=== PATIENT | male | born 1960 | race Caucasian/White ===

== ENCOUNTER → 2025-02-26 09:57 | Outpatient (REF) | payer MEDICARE, OTHER, SELFPAY | LOC: RAD 09:57 | PROVIDERS: ATTENDING PHYSICIAN Internal Medicine Cardiovascular Disease; FAMILY PHYSICIAN Family Medicine | DX: I10 Essential (primary) hypertension (principal); Z95.5 Presence of coronary angioplasty implant and graft; I73.9 Peripheral vascular disease, unspecified; I21.3 ST elevation (STEMI) myocardial infarction of unspecified site; M79.605 Pain in left leg; I65.23 Occlusion and stenosis of bilateral carotid arteries; R42 Dizziness and giddiness; I25.10 Atherosclerotic heart disease of native coronary artery without angina pectoris; K50.90 Crohn's disease, unspecified, without complications; J44.9 Chronic obstructive pulmonary disease, unspecified; E87.1 Hypo-osmolality and hyponatremia; F10.99 Alcohol use, unspecified with unspecified alcohol-induced disorder; E78.1 Pure hyperglyceridemia; Z87.891 Personal history of nicotine dependence; R53.83 Other fatigue; C64.9 Malignant neoplasm of unspecified kidney, except renal pelvis; R06.02 Shortness of breath | CPT/HCPCS: 93880; 93925 ==

== ENCOUNTER → 2025-02-28 16:41 | Outpatient (REF) | payer MEDICARE, OTHER, SELFPAY ==
[2025-02-28 17:52] LABS: Blood Urea Nitrogen 15 mg/dl (9-20); Calcium 8.8 mg/dl (8.4-10.2); Carbon Dioxide 26 mmol/L (22-30); Chloride 99 mmol/L (98-107); Glucose 103 mg/dl (70-99); Potassium 4.6 mmol/L (3.5-5.1); Sodium 131 mmol/L (135-145); eGFR > 60.00
== END ==
LOC: REG 16:41
PROVIDERS: ATTENDING PHYSICIAN Surgery Vascular Surgery; FAMILY PHYSICIAN Family Medicine
DX: I73.9 Peripheral vascular disease, unspecified (principal)
CPT/HCPCS: 36415; 80048

== ENCOUNTER → 2025-03-06 14:11 | Outpatient (REF) | payer MEDICARE, OTHER, SELFPAY | LOC: RAD 14:11 | PROVIDERS: ATTENDING PHYSICIAN Surgery Vascular Surgery; FAMILY PHYSICIAN Family Medicine | DX: I73.9 Peripheral vascular disease, unspecified (principal) | CPT/HCPCS: 75635; Q9967 ==

== ENCOUNTER 2025-04-02 10:05 | Day surgery (SDC) | payer MEDICARE, OTHER, SELFPAY ==
[2025-04-02] VITALS (16 sets, daily range): BP systolic 88–127; BP diastolic 63–77; BMI 24.5
[2025-04-02 10:56] LABS: Hematocrit 31.8 % (39.0-52.0); Hemoglobin 10.6 g/dL (13.0-18.0); Mean Corp Hgb Conc. 33.3 g/dL (33.0-37.0); Mean Corpuscular Volume 85.7 fL (80.0-94.0); Platelet Count 313 10^3/uL (130-400); Red Cell Dist. Width 15.9 % (11.5-14.5)
[2025-04-02 11:10] LABS: INR 0.93; PT 13.0 Sec (11.4-14.6)
[2025-04-02 11:11] LABS: APTT 41.7 Sec (23.4-35.0); Blood Urea Nitrogen 8 mg/dl (9-20); Calcium 8.5 mg/dl (8.4-10.2); Carbon Dioxide 24 mmol/L (22-30); Chloride 101 mmol/L (98-107); Estimated Creatinine Clearance 107 ml/min; Glucose 72 mg/dl (70-99); Potassium 4.0 mmol/L (3.5-5.1); Sodium 131 mmol/L (135-145); eGFR > 60.00
--- NOTE | 2025-04-02 12:41 | W.SUR.PREOP ---
Pre-Operative Surgical Note
-
I have examined this patient prior to the performance of the scheduled procedure.
The patient's condition is unchanged from the time of the current History and
Physical and the patient is able to undergo the scheduled procedure.
--- NOTE | 2025-04-02 13:54 | W.SUR.POST ---
Surgical Immediate Post Op
Note
Pre Op Diagnosis: PAD
Post Op Diagnosis: PAD
Procedure Performed: BL angiogram, aortogram, BL common iliac stent placement, left external iliac stent placement
Primary Surgeon: Renato Lima MD
Secondary Surgeons: N/A
Anesthesia: MAC
Estimated Blood Loss: 2ml
Fluids: See anesthesia flow sheet
Drains/Shunts: N/A
Specimens/Cultures: None
Doppler/Duplex/Angio (Y/N): Y
Complications: None
Operative Findings: Successful endovascular intervention
--- NOTE | 2025-04-02 14:32 | OR.RPT ---
Operative Report
Operative Report
PROCEDURE DATE: 04/02/2025
Preoperative diagnosis:
1. Severe debilitating bilateral lower extremity claudication.
2. History of bilateral femoral endarterectomies.
3. History of prior right external iliac artery stent placement.
Postoperative diagnosis: Same
Procedure:
1. Duplex assisted cannulation of left common femoral artery.
2. Aortogram and pelvic angiogram.
3. Right lower extremity arteriogram with selective catheterization of right proximal superficial femoral artery.
4. Balloon angioplasty and stent placement of right common iliac artery moderate to high-grade stenosis with 8 mm x 29 mm Herron VBX balloon mounted covered stent with postangioplasty 10 mm angioplasty balloon.
5. Left common iliac artery balloon angioplasty and stent placement of high-grade stenosis with 9 mm x 39 mm Herron VBX balloon mounted covered stent with post angioplasty 10 mm angioplasty balloon.
6. Balloon angioplasty and stent placement with Cook 6�35 Zilver 7 mm x 4 cm bare-metal, self-expanding stent.
7. Left femoral angiogram.
8. Supervision interpretation.
Surgeon: Clarence
Track Maintainer: None
Complications: None
Anesthesia: Local, sedation
Fluoroscopy:
21.2 min
293 mGy
60.43 gy.cm2
Indications for procedure:
Severe debilitating bilateral lower extremity claudication. History of bilateral femoral endarterectomies. Imaging had demonstrated multilevel disease. Patient had noted right side was worse symptomatically. Therefore I discussed angiography
with potential aorta/iliac artery management as well as right lower extremity attempt at SFA recanalization/angioplasties and stenting. Risk/benefits/alternatives also discussed. Patient understood all wished to proceed.
Description of procedure:
Patient was identified, brought to the operating room. Placed on the table in the supine position. After the adequate administration of anesthesia, the patient was prepped and draped in the standard surgical fashion. A standard preoperative
timeout was undertaken and everybody was in agreement with the plan.
The left common femoral artery was accessed with a micropuncture kit under direct duplex ultrasound guidance. A 5 [place] sheath was then advanced over a 0.035 inch wire, and a morales's hook catheter was advanced into the abdominal aorta.
Aortogram and pelvic angiogram was obtained. Findings as follows:
Heavily calcified aorta and bilateral iliac arteries. Significant left common iliac artery stenosis with bulky plaque noted. Right mid common iliac artery moderate stenosis noted. Right external iliac artery stent was patent. Left external iliac
artery with luminal irregularity and moderate to high-grade stenosis in the midsegment. At this point I selectively cannulated the right common femoral artery with some difficulty using a flopping of hydrophilic wire and then advanced a glide
catheter. I then performed right lower extremity arteriogram. This demonstrated patent right common femoral patched endarterectomy site. Patent profunda with no obvious stenosis. The superficial femoral artery proximal patch was patent and then
the artery occluded about 3 to 4 cm beyond the origin. In the midsegment there was a small segment with minimal flow in it but the remainder was occluded. Even on plain fluoroscopy there was severe plaque throughout the SFA. Reconstituted flow
was noted in the above-knee popliteal artery. There may have been some mild popcorn-like plaque throughout the popliteal artery above the knee. Continuous flow was noted through the below the knee popliteal artery into a proximal three-vessel
runoff. The peroneal artery became diminutive. However the posterior tibial and anterior tibial arteries were strong runoff vessels both crossing the ankle into the foot. At this point I selectively cannulated the profunda femoris artery using a
flopping of hydrophilic wire and then advanced the glide catheter. I then exchanged for a Storq wire and advanced an up and over 6 [place] sheath. The patient was given an appropriate dose of heparin. Next, under roadmap assisted guidance I
engaged the superficial femoral artery proximally with a floppy angled hydrophilic wire and a CXI catheter. However despite multiple attempts I could not gain wire purchase or advance my wire beyond the proximal occlusion. I tried both subintimal
he and the true lumen only. Could not achieve success. I therefore then tried with a stiff angled hydrophilic wire but still could not achieve success. Due to the severe calcific burden I felt that this was insurmountable at this point.
Therefore at this point I then exchanged back for a Storq wire and then withdrew the sheath to the right proximal common iliac artery and obtained a angiogram to mahesh the screen identifying the right iliac bifurcation and the right iliac stenosis
(common iliac). I then exchanged for a short 7 [place] sheath and then advanced a Herron VBX 8 mm x 29 mm balloon mounted covered stent. Once in position, I then ballooned into place, carefully noting the position of the iliac bifurcation so as not
to cover it. I then post angioplastied it with a 10 mm balloon as well to expand it out further. Completion angiogram demonstrated excellent result with no residual stenosis.
Now I exchanged for a Storq wire into the abdominal aorta. I performed retrograde angiogram of the left iliac system and identified the severe left common iliac artery stenosis as well as the iliac bifurcation. I then advanced a Herron VBX 9 mm x 39
mm covered stent into place taking care to avoid any coverage of the internal iliac/iliac bifurcation. Once positioned I ballooned it into place. I then post angioplastied with a 10 mm balloon. Next I used a Cook 6�35 Zilver stent 7 mm x 4 cm to
treat the external iliac artery stenosis. This was successfully deployed into place. It was post angioplastied with a 7 mm balloon. Completion angiogram now demonstrated excellent result with no residual stenosis in the iliac system on the left
side. At this point is very satisfied.
Left femoral angiogram was performed through the sheath that demonstrated good puncture in the left common femoral artery. Common femoral and profunda (patched sites) were patent. No significant stenosis. Proximal SFA with mild to moderate
disease and then in the midsegment the SFA had severe disease. At this point the wires were withdrawn. The sheath was withdrawn and manual pressure was applied to the puncture site after patient was given protamine as well. Hemostasis was fully
achieved. Patient tolerated procedure well and had 2+ palpable strong bilateral femoral pulses upon completion.
The patient can be considered for right lower extremity surgical bypass versus percutaneous bypass, and if continued symptoms in the left lower extremity can be considered for endovascular treatment of the left SFA disease.
[2025-04-02] MEDS: NSS 1000 IV (15:52)
== END 2025-04-02 19:26 | disposition home or self-care (01) ==
LOC: CATH 10:05
PROVIDERS: ATTENDING PHYSICIAN Surgery Vascular Surgery; FAMILY PHYSICIAN Family Medicine; OTHER PHYSICIAN Internal Medicine Cardiovascular Disease; PRIMARYCARE PHYSICIAN Family Medicine
DX: I70.213 Atherosclerosis of native arteries of extremities with intermittent claudication, bilateral legs (principal); Z79.82 Long term (current) use of aspirin; Z79.899 Other long term (current) drug therapy; Z79.02 Long term (current) use of antithrombotics/antiplatelets
CPT/HCPCS: 37221; 75630; 80048; 85027; 85610; 85730; 86850; 86900; 86901; C1725; C1769; C1874; C1876; C1887; C1894

== ENCOUNTER → 2025-05-06 13:20 | Outpatient (REF) | payer MEDICARE, OTHER, SELFPAY | LOC: RAD 13:20 | PROVIDERS: ATTENDING PHYSICIAN Surgery Vascular Surgery; FAMILY PHYSICIAN Family Medicine | DX: I73.9 Peripheral vascular disease, unspecified (principal) | CPT/HCPCS: 93922; 93925; 93978 ==

== ENCOUNTER → 2025-05-28 13:46 | Outpatient (REF) | payer MEDICARE, OTHER, SELFPAY | LOC: RAD 13:46 | PROVIDERS: ATTENDING PHYSICIAN Surgery Vascular Surgery; FAMILY PHYSICIAN Family Medicine | DX: I73.9 Peripheral vascular disease, unspecified (principal); I87.2 Venous insufficiency (chronic) (peripheral) | CPT/HCPCS: 93970 ==

== ENCOUNTER → 2025-06-13 16:11 | Outpatient (REF) | payer MEDICARE, OTHER, SELFPAY | LOC: PAVMRI 16:11 | PROVIDERS: ATTENDING PHYSICIAN Physician Assistant; FAMILY PHYSICIAN Family Medicine | DX: M80.08XA Age-related osteoporosis with current pathological fracture, vertebra(e), initial encounter for fracture (principal) | CPT/HCPCS: 72148 ==